=== PATIENT | male | born 1945 | race Caucasian/White ===

== ENCOUNTER → 2017-08-09 | Day surgery (SDC) | payer OTHER ==
[~2017-08-09] MED LIST: ALTEPLASE 2 MG VIAL IVP PRN; FLUMAZENIL 0.5 MG/5 ML MDV IVP ONE; FLUMAZENIL 0.5 MG/5 ML MDV IVP PRN; GLUCAGON HCL 1 MG VIAL IVP PRN; HEPARIN 10,000 UNIT/10 ML MDV (1,000 UNIT/ML) IVP PRN; IOPAMIDOL (ISOVUE-300) 100 ML BTL ONE; LIDOCAINE 1% 300 MG/30 ML SDV ONE; MEPERIDINE 25 MG/ML SYR IVP PRN; MIDAZOLAM 2 MG/2 ML VIAL IVP PRN; MIDAZOLAM 2 MG/2 ML VIAL ONE; NALOXONE HCL 0.4 MG/ML INJ IVP PRN; NALOXONE HCL 0.4 MG/ML INJ ONE; NS 1,000 ML IV SCH; ONDANSETRON 4 MG/2 ML VIAL IVP PRN; OXYCODONE/APAP 5/325 TAB PO PRN; PROTAMINE SULFATE 50 MG/5 ML VIAL IVP PRN; fentaNYL 100 MCG/2 ML INJ IVP PRN; fentaNYL 100 MCG/2 ML INJ ONE
[2017-08-09 12:41] LABS: INR 1.03 (0.83-1.16); PROTIME(PATIENT) 13.7 SEC (12.0-15.0)
--- NOTE | 2017-08-09 12:51 | PDHPUP ---
History & Physical Update H&P update statement: This history and physical update is based on an assessment of the patient which was completed after admission or registration (within 24 hours), but prior to the surgery/procedure. H&P update: H&P reviewed & patient examined, no change in patient's condition since H&P completed
--- NOTE | 2017-08-09 12:51 | PDPROPOC ---
Sedation Plan of Care Sedation Plan of Care: vital signs stable, mental status noted, patient educated of risks, benefits, alternatives, patient can tolerate sedation ASA Classification: ASA 2 Planned drugs: fentanyl, midazolam Mallampati Score: Class 1 Mallampati Reference Image: Patient passed 3-3-2 rule?: Yes
[2017-08-09 13:55] VITALS: BP 127/80
--- NOTE | 2017-08-09 13:58 | POSTOPPROG ---
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
== END | disposition home or self-care (01) ==
LOC: FIMAGING 11:30
PROVIDERS: ATTEND Neurological Surgery
PROC: B3181ZZ Fluoroscopy of Bilateral Internal Carotid Arteries using Low Osmolar Contrast (ICD-10-PCS; principal; 2017-08-09)
PROC: B31F1ZZ Fluoroscopy of Left Vertebral Artery using Low Osmolar Contrast (ICD-10-PCS; principal; 2017-08-09)
DX: I67.1 Cerebral aneurysm, nonruptured (principal)
CPT/HCPCS: 36224; 36226; 99152; 99153; C1769; C1894; C1760; J1644; J2250; J2310; J3010; Q9967

== ENCOUNTER 2018-01-17 11:39 | Day surgery (SDC) | payer OTHER ==
[2018-01-17 12:29] LABS: PLATELET COUNT 238 10^3/uL (150-400)
[2018-01-17 12:39] VITALS: BP 134/77
[2018-01-17 12:42] LABS: INR 0.95 (0.83-1.16); PROTIME(PATIENT) 12.9 SEC (12.0-15.0)
--- NOTE | 2018-01-17 13:04 | PDANEPAE ---
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 of skull ANE Past Medical History - Cardiovascular History Hx Hypertension: No Hx Arrhythmias: No Hx Chest Pain: No Hx Coronary Artery / Peripheral Vascular Disease: No Hx CHF / Valvular Disease: No Hx Palpitations: No - Pulmonary History Hx COPD: No Hx Asthma/Reactive Airway Disease: No Hx Recent Upper Respiratory Infection: No Hx Oxygen in Use at Home: No Hx Sleep Apnea: No Sleep Apnea Screening Result - Last Documented: Negative - Neurologic History Hx Cerebrovascular Accident: No Hx Seizures: No Hx Dementia: No Neurologic History Comment: aneurysm - Endocrine History Hx Diabetes: Yes Hypothyroid: Yes Hyperthyroid: No Obesity: no Endocrine History Comment: hypothyroid - Renal History Hx Renal Disorders: Yes Renal History Comment: prostate cancer - Liver History Hx Hepatic Disorders: No - Neurological & Psychiatric Hx Hx Neurological and Psychiatric Disorders: No - Cancer History Hx Cancer: Yes Cancer History Comment: prostate-radiation hormone therapy - Congenital Disorder History Hx Congenital Disorders: No - GI History GERD: no Hx Gastrointestinal Disorders: No - Chronic Pain History Chronic Pain: No - Surgical History Prior Surgeries: ankle repair. finger repair ANE Review of Systems Review of systems is: negative Review of Systems: - Exercise capacity METS (RN): 4 METS ANE Patient History - Allergies Allergies/Adverse Reactions: No Known Allergies Allergy (Verified 08/02/17 17:11) - Home Medications Home medications: home medication list seen and reviewed Home Medications: Atorvastatin Calcium [Lipitor 10 mg (*)] 10 mg PO DAILY 08/02/17 [Last Taken ] Cholecalciferol (Vitamin D3) [Vitamin D3] 8,000 unit PO 08/02/17 [Last Taken ] Levothyroxine [Synthroid 112 mcg (*)] 112 mcg PO DAILY06 08/02/17 [Last Taken ] Warfarin Sodium [Coumadin 7.5MG (*)] 7.5 mg PO DAILY16 08/02/17 [Last Taken ] Probiotic 08/09/17 [Last Taken 08/08/17] Aspirin 81mg (*) 1 tab DAILY 01/17/18 [Last Taken 01/16/18] Calcium 1,000 DAILY 01/17/18 [Last Taken 01/16/18] - NPO status NPO Status: no food or drink >8 hours - Anes Hx Anes Hx: no prior problems - Smoking Hx Smoking Status: Former smoker Marijuana use: Yes - Alcohol Use Alcohol Use: None - Family Anes Hx Family Anes Hx: none Family Hx Anesthesia Complications: none ANE Labs/Vital Signs - Labs Result Diagrams: 01/17/18 12:10 01/17/18 12:10 - Vital Signs Blood Pressure: 134/77 Heart Rate: 66 Respiratory Rate: 18 O2 Sat (%): 94 Height: 185.42 cm Weight: 86.183 kg ANE Physical Exam - Airway Neck exam: FROM Mallampati Score: Class 2 Mouth exam: normal dental/mouth exam - Pulmonary Pulmonary: no respiratory distress, clear to auscultation - Cardiovascular Cardiovascular: regular rate and rhythym, no murmur, rub, or gallop - ASA Status ASA Status: III ANE Anesthesia Plan Anesthesia Plan: general endotracheal anesthesia
== END 2018-01-17 16:15 | disposition home or self-care (01) ==
LOC: FIMAGING 11:39
PROVIDERS: ATTEND Neurological Surgery
DX: I67.1 Cerebral aneurysm, nonruptured (principal); Z53.8 Procedure and treatment not carried out for other reasons

== ENCOUNTER 2018-01-24 13:29 | Inpatient (IN) | payer OTHER ==
[2018-01-24] MEDS ORDERED: FLUMAZENIL 0.5 MG/5 ML MDV IVP PRN (13:47)
[2018-01-24] MEDS ORDERED: MIDAZOLAM 2 MG/2 ML VIAL IVP PRN (13:47)
[2018-01-24] MEDS ORDERED: NALOXONE HCL 0.4 MG/ML INJ IVP PRN ×2 (13:47→16:35)
[2018-01-24] MEDS ORDERED: fentaNYL 100 MCG/2 ML INJ IVP PRN ×2 (13:47→16:35)
[2018-01-24] MEDS ORDERED: NS 1,000 ML IV SCH (14:00)
[2018-01-24 14:21] LABS: INR 0.91 (0.83-1.16); PROTIME(PATIENT) 12.5 SEC (12.0-15.0)
[2018-01-24] MEDS ORDERED: CLOPIDOGREL BISULFATE 75 MG TAB PO ONE ×2 (14:30→14:45)
[2018-01-24] MEDS ORDERED: IOPAMIDOL (ISOVUE-300) 100 ML BTL ONE (14:38)
[2018-01-24] MEDS ORDERED: PROPOFOL 200 MG/20 ML VIAL ONE (15:26)
[2018-01-24] MEDS ORDERED: fentaNYL 100 MCG/2 ML INJ ONE (15:26)
[2018-01-24] MEDS ORDERED: ROCURONIUM 100 MG/10 ML VIAL ONE (15:29)
[2018-01-24] MEDS ORDERED: LIDOCAINE 2% 5 ML SDV ONE (15:30)
[2018-01-24] MEDS ORDERED: DEXAMETHASONE 4 MG/ML VIAL ONE ×2 (16:01)
[2018-01-24] MEDS ORDERED: ONDANSETRON 4 MG/2 ML VIAL ONE (16:02)
[2018-01-24] MEDS ORDERED: PHENYLEPHRINE HCL 100 MCG/ML SYR IVP PRN (16:35)
[2018-01-24] MEDS ORDERED: oxyCODONE IR 5 MG TAB PO PRN (16:35)
[2018-01-24] MEDS ORDERED: ALBUTEROL 3 ML DEYVIAL IH PRN (16:35)
[2018-01-24] MEDS ORDERED: MEPERIDINE 25 MG/0.5 ML AMP IVP PRN (16:35)
[2018-01-24] MEDS ORDERED: DIAZEPAM 5 MG/ML 1 ML SYR IVP PRN (16:35)
[2018-01-24] MEDS ORDERED: PROMETHAZINE HCL 25 MG/ML INJ IVP PRN (16:35)
[2018-01-24] MEDS ORDERED: METOCLOPRAMIDE 10 MG/2 ML VIAL IVP PRN (16:35)
[2018-01-24] MEDS ORDERED: HYDROmorphONE/DILAUDID 2 MG/ML INJ IVP PRN (16:35)
[2018-01-24] MEDS ORDERED: ACETAMINOPHEN 500 MG TAB PO PRN (16:35)
[2018-01-24] MEDS ORDERED: LABETALOL HCL 20 MG/4 ML INJ IVP PRN (16:35)
--- NOTE | 2018-01-24 16:35 | PDANEPAE ---
ANE History of Present Illness right petrous carotid aneurysm ANE Past Medical History - Cardiovascular History Hx Hypertension: No Hx Arrhythmias: No Hx Chest Pain: No Hx Coronary Artery / Peripheral Vascular Disease: No Hx CHF / Valvular Disease: No Hx Palpitations: No - Pulmonary History Hx COPD: No Hx Asthma/Reactive Airway Disease: No Hx Recent Upper Respiratory Infection: No Hx Oxygen in Use at Home: No Hx Sleep Apnea: No - Neurologic History Hx Cerebrovascular Accident: No Hx Seizures: No Hx Dementia: No Neurologic History Comment: aneurysm - Endocrine History Hx Diabetes: Yes Hypothyroid: Yes Hyperthyroid: No Obesity: no Endocrine History Comment: hypothyroid - Renal History Hx Renal Disorders: Yes Renal History Comment: prostate cancer - Liver History Hx Hepatic Disorders: No - Neurological & Psychiatric Hx Hx Neurological and Psychiatric Disorders: No - Cancer History Hx Cancer: Yes Cancer History Comment: prostate-radiation hormone therapy - Congenital Disorder History Hx Congenital Disorders: No - GI History GERD: no Hx Gastrointestinal Disorders: No - Chronic Pain History Chronic Pain: No - Surgical History Prior Surgeries: ankle repair. finger repair ANE Review of Systems Review of systems is: negative Review of Systems: - Exercise capacity Exercise capacity: >=4 METS ANE Patient History - Allergies Allergies/Adverse Reactions: No Known Allergies Allergy (Verified 08/02/17 17:11) - Home Medications Home medications: home medication list seen and reviewed Home Medications: Atorvastatin Calcium [Lipitor 10 mg (*)] 10 mg PO DAILY 08/02/17 [Last Taken 07/06] Cholecalciferol (Vitamin D3) [Vitamin D3] 8,000 unit PO 08/02/17 [Last Taken 07/06] Levothyroxine [Synthroid 112 mcg (*)] 112 mcg PO DAILY06 08/02/17 [Last Taken ] Warfarin Sodium [Coumadin 7.5MG (*)] 7.5 mg PO DAILY16 08/02/17 [Last Taken 03/08] Probiotic 08/09/17 [Last Taken 01/23/18] Aspirin 81mg (*) 1 tab DAILY 01/17/18 [Last Taken 01/23/18] Calcium 1,000 DAILY 01/17/18 [Last Taken 01/23/18] - NPO status NPO Status: no food or drink >8 hours - Anes Hx Anes Hx: no prior problems - Smoking Hx Smoking Status: Former smoker - Family Anes Hx Family Anes Hx: none Family Hx Anesthesia Complications: none ANE Labs/Vital Signs - Labs Result Diagrams: 01/24/18 14:00 01/24/18 14:00 - Vital Signs Blood Pressure: 122/81 Heart Rate: 57 Respiratory Rate: 16 O2 Sat (%): 95 Height: 185.42 cm Weight: 84.822 kg ANE Physical Exam - Airway Neck exam: FROM Mallampati Score: Class 2 Mouth exam: normal dental/mouth exam - Pulmonary Pulmonary: no respiratory distress - Cardiovascular Cardiovascular: regular rate and rhythym - ASA Status ASA Status: II ANE Anesthesia Plan Anesthesia Plan: general endotracheal anesthesia
[2018-01-24] MEDS ORDERED: PHENYLEPHRINE HCL 100 MCG/ML SYR ONE (16:40)
[2018-01-24] MEDS ORDERED: GLYCOPYRROLATE 0.2 MG/1 ML VIAL ONE ×2 (16:48)
[2018-01-24] MEDS ORDERED: NEOSTIGMINE METHYLSULFATE 5 MG/5 ML SYR ONE (16:48)
--- NOTE | 2018-01-24 17:28 | POSTANESTH ---
Post Anesthetic Evaluation Cardiovascular Status: Normal, Stable Respiratory Status: Normal, Stable Level of Consciousness/Mental Status: Can Participate in Eval Pain Control: Adequate, Prn Tx Ordered Nausea/Vomiting Control: Adequate, Prn Tx Ordered Complications Possibly Related to Anesthesia: None Noted
[2018-01-24] MEDS ORDERED: OXYCODONE/APAP 5/325 TAB PO PRN (17:32)
[2018-01-24] MEDS ORDERED: ONDANSETRON 4 MG/2 ML VIAL IVP PRN (17:32)
--- NOTE | 2018-01-24 17:32 | PDCONSULT ---
Production Planner Scheduler Note: NEURSURGERY resting well in PACU, no complaints AAOx3 strength full, sensation normal, no drift groin c/d/i, distal pulses palpable POD#0 s/p pipeline embolization of right ICA aeneurysm - continue ASA/plavix - SDU obs overnight - d/c home in AM Silvia
[2018-01-25 06:50] VITALS: BP 125/71
--- NOTE | 2018-01-25 07:46 | SOAPPROG ---
SOAP Progress Note Assessment/Plan: Assessment: 72 yo male sp. 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 Doing great. No overnight issues. Plan: DC Home today on his home doses of ASA and Plavix DW Dr. Vega. Follow up in 3 weeks. 01/25/18 07:45 Subjective: Awake, alert, no complaints, feels totally normal Objective: Vital Signs Temp Pulse Resp BP Pulse Ox 36.9 C 56 L 14 125/71 H 97 01/24/18 20:00 01/25/18 06:00 01/25/18 06:00 01/25/18 06:00 01/25/18 06:00 Laboratory Results 01/24/18 14:00 01/24/18 14:00 01/24/18 01/25/18 01/26/18 05:59 05:59 05:59 Intake Total 2340 Output Total 0 Balance 2340 PT 12.5 SEC (12.0-15.0) 01/24/18 14:00 INR 0.91 (0.83-1.16) 01/24/18 14:00 Neuro: PEÑALOZA, Sens +LT speech clear PERRLA, EOMI No pronator drift No facial droop ICD10 Worksheet Patient Problems: Problems Problem Status Onset Arterial dissection Acute - ICD10 Problem Qualifiers (1) Arterial dissection
[2018-01-25] MEDS ORDERED: CLOPIDOGREL BISULFATE 75 MG TAB PO SCH (09:00)
[2018-01-25] MEDS ORDERED: ASPIRIN 81 MG CHEWABLE TAB PO SCH (09:00)
--- NOTE | 2018-01-25 09:08 | PDMN ---
Medical Necessity Medical necessity: Pt meets inpt criteria per MD order and Neurosurgery or Procedure GRG. 72 y/o admitted for pipeline stent for R ICA dissection of skull base aneurism, [facility] inpt only surg list, post-op ICU care.
== END 2018-01-25 09:00 | disposition home or self-care (01) | DRG 25 ==
LOC: F3N 13:29 → F2N 18:00
PROVIDERS: ADMIT Neurological Surgery; ATTEND Neurological Surgery
PROC: 03VG3DZ Restriction of Intracranial Artery with Intraluminal Device, Percutaneous Approach (ICD-10-PCS; principal; 2018-01-24 15:00)
DX: I67.1 Cerebral aneurysm, nonruptured (principal); I77.71 Dissection of carotid artery
CPT/HCPCS: C1769; C1876; C1887; C1893; C1894; J1100; J1644; J2370; J2405; J2704; J2710; J3010; Q9967